=== PATIENT | male | born 1980 | race Caucasian/White ===

== ENCOUNTER 2023-09-17 12:49 | Outpatient (CLI) | payer BC ==
--- NOTE | 2023-09-17 17:12 | MRI Report ---
PROCEDURE: Knee RT WO INDICATIONS: R KNEE PAIN TECHNIQUE: Noncontrast sagittal PD fast spin echo and T2 fast spin echo with fat saturation, sagittal 3-D gradie nt sequence with fat saturation; coronal T1 spin echo and PD fast spin echo with fat saturation, and axial PD fast spin echo with fat saturation through the knee. COMPARISON: Right knee radiograph dated 09/04/2023. FINDINGS: Image quality: Excellent. Menisci: Oblique tear involving posterior horn of medial meniscus is seen extending to inferior artic ulating surface. The lateral meniscus is intact. The meniscal root ligaments appear intact. Cruciate ligaments: The anterior cruciate ligament is mildly thickened with subtle intrasubstance T2 hyperintense signal near its distal insertion. The posterior cruciate ligament is intact.. Medial structures: The medial collateral ligament appears mildly thickened. The visualized portions of the pes anserinus tendons appear normal. No abnormal bursal fluid. Lateral structures: The lateral collateral ligament, long and short heads of the biceps femoris tend on appear intact. The popliteus tendon appears normal. Iliotibial band appears normal. Anterior structures: The quadriceps and patellar tendons appear intact. Patellar alignment is michelle l. No femoral trochlear dysplasia or ventral trochlear prominence. No edema in the infrapatellar fa t pad. Bones and cartilage: No bone marrow contusions or fractures. 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 Low-grade chondromalacia is also noted throughout patella cartilage m ore notably involving medial facet of patella cartilage. Joint space: There is small knee joint fluid. No Vang's cyst. Normal appearing synovial plicae ar e incidentally noted. IMPRESSION: 1. Oblique tear involving posterior horn of medial meniscus extending to inferior articulating surfac e. The lateral meniscus is intact. 2. Low-grade ACL sprain. No full-thickness ACL rupture. The PCL is intact. 3. Low-grade MCL sprain. 4. 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 No fracture or dislocation. Small joint effusion, no gross loose bodies. Reviewed by: Sergio Naranjo MD on 09/17/2023 5:10 PM PDT Approved by: Sergio Naranjo MD on 09/17/2023 5:10 PM PDT Station ID: [id number]
== END 2023-09-17 12:50 | disposition home or self-care (01) ==
LOC: DI 12:49
PROVIDERS: ATTEND Nurse Practitioner Acute Care
DX: S83.241A Other tear of medial meniscus, current injury, right knee, initial encounter (principal); S83.511A Sprain of anterior cruciate ligament of right knee, initial encounter; S83.411A Sprain of medial collateral ligament of right knee, initial encounter; M94.261 Chondromalacia, right knee; M25.461 Effusion, right knee

== ENCOUNTER 2023-09-27 08:15 | Outpatient (CLI) | payer BC ==
--- NOTE | 2023-09-27 14:58 | XRAY Report ---
PROCEDURE: Knee 2 View RT INDICATIONS: RIGHT KNEE PAIN, BILAT AP AND RIGHT PA TUNNEL TECHNIQUE: 2 views of the knee(s) were acquired. COMPARISON: 09/04/2023. FINDINGS: Bones: No fractures or dislocations. Minimal degenerative changes are redemonstrated. No suspicious bony lesions. Soft tissues: No suspicious soft tissue calcifications or masses. IMPRESSION: No acute bony abnormality. Minimal degenerative changes are redemonstrated. Reviewed by: Darrel Reyes MD on 09/27/2023 2:57 PM PDT Approved by: Darrel Reyes MD on 09/27/2023 2:57 PM PDT Station ID: [id number]
== END 2023-09-27 23:59 | disposition home or self-care (01) ==
LOC: DI.WOS 08:15
PROVIDERS: ATTEND Physician Assistant Surgical
DX: M17.11 Unilateral primary osteoarthritis, right knee (principal)